=== PATIENT | male | born 2000 | race Caucasian/White ===

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

== ENCOUNTER 2022-02-10 22:27 | Emergency (ER) | payer OTHER, SELFPAY ==
[2022-02-10 22:35] VITALS: BP 131/87; PULSE 80; RESP 18; TEMP 36.2; O2SAT 98
--- NOTE | 2022-02-10 22:42 | ED.EYEPROB ---
HPI - Eye Problem General Chief complaint: Eye Problems Stated complaint: RT eye blurry vision, film on eye Time Seen by Provider: 02/10/22 22:49 History of Present Illness HPI Narrative: 22-year-old male patient is brought in by the mother with complaints of difficulty with vision in the right eye and a feeling of something sticking there. Apparently the patient woke up this morning with complaints of itching and redness to the right eye. He use some saline eyedrops and took an antihistamine by mouth and slept during the day. Upon waking up this evening he felt like he was having some film in front of his eye and he was not able to see. He is complaining of slight discomfort but no significant pain or itching in the area. He is not aware of any foreign body or any scratches by the CT that he owns although he states that he is allergic to the cat. Patient does not wear any contact lenses are corrective lenses. Patient denies any difficulty with the left eye. Patient denies any associated headache. He denies any fever or chills. He is generally in good health. Related Data Home Medications Medication Instructions Recorded Confirmed No Home Medications 09/11/20 02/10/22 Allergies Allergy/AdvReac Type Severity Reaction Status Date / Time No Known Allergies Allergy Mild Verified 02/10/22 22:42 Review of Systems Review of Systems: All systems reviewed & are unremarkable except as noted in HPI and below PMFSH Past Medical History Medical History Headache Patient denies medical problems Surgical History Surgical History No history of previous surgery Family History Family History Other Arthritis Cancer Diabetes mellitus Heart disease Hypertension Social History Social History Smoking status: Never smoker Alcohol intake: never Exam Narrative: Patient is alert and appears in no acute distress. Vital signs are noted to be stable. HEENT: head is atraumatic. No facial abnormality is noted. There is no excessive tearing or photophobia present at this time. Are the pupils are round and equal bilaterally. On the right eye the patient has a swelling over the cornea towards lower half of the pupil. There is no conjunctival injection noted. The EOMs are intact on right and left eyes. Pupils are equal and reactive. Patient has good light perception and is able to see objects but states that they appear blurry. Ear nose and throat are normal. Neck is supple thick No respiratory distress. Heart tones are regular. . Rest of the physical examination is normal ; Course Course Emergency Course: fluorescent stain is negative. I have discussed the coronal edema with the patient and the mother and suggested to use the the dextrose I washed tonight and avoid any the rubbing. I have also suggested that the patient follow-up with either the child development director or [facility] primary care provider tomorrow for a further evaluation. Discharge Plan Discharge Clinical Impression: Corneal edema of right eye Patient Disposition: Home, Self-Care Condition: Stable Additional Instructions: Avoid rubbing the eye Use saline drops or tyhe eye stream given here to keep the eye flushed Take Ibuprofen 600 mg tonite for reducing the swelling Follow up with PMD or the Optical Dispenser tomorrow Prescriptions: No Action No Home Medications Follow-up/Referrals: Vuaghn Alvarez, [Primary Care Provider] -
[2022-02-10] MEDS: DACRIOSE EYE IRRIGATION 118 ML BOTTLE 100 ML RIGHT EYE (22:55)
[2022-02-10] MEDS: FLUORESCEIN SOD 1 MG/STRIP EACH EYE (22:55)
[2022-02-10 23:35] VITALS: BP 119/78; PULSE 78; RESP 16; O2SAT 97
== END 2022-02-10 23:40 | disposition home or self-care (01) ==
PROVIDERS: Emergency Provider Emergency Medicine; PCP Family Medicine
DX: R60.9 Edema, unspecified (principal)
CPT/HCPCS: 99283; A9270